=== PATIENT | male | born 1940 | race Caucasian/White ===

== ENCOUNTER → 2017-05-02 | Outpatient (CLI) | payer OTHER, MEDICARE ==
[~2017-05-02] VITALS: Ht 177.8 cm; Wt 79.4 kg
[~2017-05-02] MED LIST: ALEVE220 MG PO; CENTRUM SILVER1 EAC4 PO; LISINOPRIL20 MG PO; NEURONTIN600 MG PO; TRAMADOL 50 MG50 MG PO
--- NOTE | ~2017-05-02 | P ---
[facility] [place] [address] PROCEDURE REPORT Name: CAROL HERNÁNDEZ Room #: REG GHULAM Tovar#: [id number] Admission: 05/02/17 Attend Phys: Alec De La Cruz Discharge: Date of : 42 Report #: [id number] THIS REPORT FOR: //name// CC: Alfredo Vallejo DATE OF SERVICE: 05/02/2017 PROCEDURE PERFORMED: Colonoscopy. HISTORY OF PRESENT ILLNESS: The patient is a 77-year-old male with a history of colon polyps, here for routine followup. Denies any symptoms. No family history of colon cancer. DESCRIPTION OF PROCEDURE: The risks and benefits of the procedure were explained to the patient, those risks including but not limited to bleeding, perforation, the risk of sedation. He understood these risks and gave informed consent. Sedation was given using propofol per Anesthesia. Next, digital rectal exam was initially performed, which was normal. Next, using a standard Fujinon colonoscope, the scope was placed in the patient's anus and advanced under direct vision to the cecum. The overall prep was good. Cecum and ileocecal valve were normal in appearance. The ascending and transverse colon were normal. Multiple diverticula were noted throughout the descending and sigmoid colon, no evidence of inflammation, otherwise normal. The rectal mucosa was normal. On retroflexion, small nonbleeding internal hemorrhoids were noted, otherwise normal colonoscopy. The scope was then withdrawn and the procedure terminated. The patient tolerated the procedure well. IMPRESSION: 1. Left-sided diverticulosis. 2. Internal hemorrhoids. 3. Otherwise, normal colonoscopy. RECOMMENDATIONS: No repeat colonoscopy needed as the patient had no polyps on exam today is 77 years old. Thank you for allowing me to participate in his care. <ELECTRONICALLY SIGNED> By: Alec Vallejo MD 05/04/17 [id number] Alec Vallejo MD /nt
== END | disposition home or self-care (01) ==
LOC: GI 07:59
DX: Z09 Encounter for follow-up examination after completed treatment for conditions other than malignant neoplasm (principal); Z86.010 Personal history of colon polyps; K57.30 Diverticulosis of large intestine without perforation or abscess without bleeding; K64.8 Other hemorrhoids; I10 Essential (primary) hypertension; Z86.2 Personal history of diseases of the blood and blood-forming organs and certain disorders involving the immune mechanism; Z87.442 Personal history of urinary calculi; Z90.49 Acquired absence of other specified parts of digestive tract; Z87.891 Personal history of nicotine dependence; Z98.890 Other specified postprocedural states; Z88.8 Allergy status to other drugs, medicaments and biological substances; Z79.899 Other long term (current) drug therapy
CPT/HCPCS: 62110; 62900